=== PATIENT | female | born 1990 | race Caucasian/White ===

== ENCOUNTER 2018-12-03 16:43 | Emergency (ER) | payer OTHER ==
[2018-12-03 17:02] VITALS: BMI 25.8
--- NOTE | 2018-12-03 17:05 | PDOC ---
Rapid Medical Evaluation Chief Complaint: Nausea/Vomiting Time Seen by Provider: 12/03/18 16:57 Medical Evaluation: Vital Signs Temp Pulse Resp BP Pulse Ox 98.5 F 80 18 89/59 L 98 12/03/18 16:56 12/03/18 16:56 12/03/18 16:56 12/03/18 16:56 12/03/18 16:56 12/03/18 17:03 I have performed a brief in-person evaluation of this patient. The patient presents with a chief complaint of:sore throat Pertinent physical exam findings:Hypotensive and mostly somnolent in triage I have ordered the following:Labs and rapid strep The patient will proceed to the ED for further evaluation. 12/03/18 17:05 Discharge Disposition - Diagnosis Throat pain - Referrals - Patient Instructions - Post Discharge Activity
[2018-12-03 17:48] LABS: BASO % 0.3 % (0-2.0); HEMOGLOBIN 13.2 GM/dL (10.7-15.3); MCH 28.7 pg (25.7-33.7); MCHC 32.1 g/dl (32.0-36.0); MEAN CELL VOLUME 89.4 fl (80-96); MEAN PLT VOLUME 9.7 fl (7.5-11.1); MONO % 10.5 % (3.8-10.2); NEUT % 58.2 % (42.8-82.8); PLATELET COUNT 247 K/MM3 (134-434); RBC 4.59 M/mm3 (3.60-5.2); RDW 13.3 % (11.6-15.6); WHITE BLOOD COUNT 9.4 K/mm3 (4.0-10.0)
[2018-12-03 17:59] LABS: EPI CELLS 3.4 /HPF (0-5/HPF); HYALINE CASTS 3 /lpf (0-8); URINE APPEARANCE TURBID; URINE BACTERIA 4862.9 /hpf (NEGATIVE); URINE BILIRUBIN NEGATIVE (NEGATIVE); URINE COLOR YELLOW; URINE GLUCOSE (UA) NEGATIVE (NEGATIVE); URINE KETONE TRACE (NEGATIVE); URINE LEUK ESTERASE NEGATIVE (NEGATIVE); URINE NITRITE POSITIVE (NEGATIVE); URINE PROTEIN NEGATIVE (NEGATIVE); URINE RBC 5 /hpf (0-4); URINE WBC 2 /hpf (0-5)
[2018-12-03 18:08] LABS: COCAINE, UR NEGATIVE ng/ml (CUTOFF=300); METHADONE, UR NEGATIVE ng/ml (CUTOFF=300); OPIATES, URI NEGATIVE ng/ml (CUTOFF=300); PHENCYCLIDINE,URINE NEGATIVE ng/ml (CUTOFF=25); URINE AMPHETAMINES NEGATIVE ng/ml (CUTOFF=500); URINE BARBITURATES NEGATIVE ng/ml (CUTOFF=200)
[2018-12-03 18:23] LABS: BILIRUBIN,TOTAL 0.4 mg/dL (0.2-1); BLOOD UREA NITROGEN 9.4 mg/dL (7-18); CALCIUM 9.4 mg/dL (8.5-10.1); CREATININE 0.8 mg/dL (0.55-1.3); POTASSIUM 3.8 mmol/L (3.5-5.1)
[2018-12-03 18:24] LABS: URINE BENZODIAZEPINES POSITIVE ng/ml (CUTOFF=200)
[2018-12-03] MEDS ORDERED: DEXAMETHASONE SOD PHOSPHATE 10 MG/1 ML VIAL IM ONE (20:06)
[2018-12-03] MEDS ORDERED: KETOROLAC TROMETHAMINE 30 MG/1 ML VIAL IM ONE (20:06)
[2018-12-03] MEDS ORDERED: KETOROLAC TROMETHAMINE 30 MG/1 ML VIAL ONE ×2 (20:19→22:47)
[2018-12-03] MEDS ORDERED: DEXAMETHASONE SOD PHOSPHATE 10 MG/1 ML VIAL ONE (20:19)
[2018-12-03] MEDS ORDERED: CEFTRIAXONE 2 GM-D5W BAG 2 GM/50 ML BAG IVPB ONE (21:06)
[2018-12-03] MEDS ORDERED: CLINDAMYCIN 900 MG PREMIX IVPB 900 MG/50 ML BAG IVPB ONE ×2 (21:06→21:53)
[2018-12-03] MEDS ORDERED: BENZOCAINE 20% 57 GM BOTTLE TP ONE (21:12)
[2018-12-03] MEDS ORDERED: CEFTRIAXONE 2 GM/100 ML BAG IVPB ONE (21:53)
--- NOTE | 2018-12-03 22:07 | PDOC ---
History of Present Illness - General Chief Complaint: Nausea/Vomiting Stated Complaint: FEVER/VOMITING Time Seen by Provider: 12/03/18 16:57 History Source: Patient Exam Limitations: No Limitations Past History - Past Medical History Allergies/Adverse Reactions: Allergies Allergy/AdvReac Type Severity Reaction Status Date / Time acetaminophen [From Vicodin] AdvReac Verified 12/03/18 17:03 hydrocodone [From Vicodin] AdvReac Verified 12/03/18 17:03 Home Medications: Ambulatory Orders Amoxicillin/Potassium Clav [Augmentin 875-125 Tablet] 1 each PO BID #20 tablet 12/03/18 Clonazepam [Klonopin] 1 mg PO QID 12/03/18 Gabapentin 900 mg PO DAILY 12/03/18 Quetiapine Fumarate [Seroquel -] 50 mg PO PRN 12/03/18 Quetiapine Fumarate [Seroquel] 200 mg PO HS 12/03/18 Sertraline HCl [Zoloft -] 150 mg PO DAILY 12/03/18 Topiramate [Topamax] 50 mg PO DAILY 12/03/18 Zolpidem Tartrate [Ambien] 10 mg PO HS 12/03/18 COPD: No HTN: Yes Hypercholesterolemia: Yes Psychiatric Problems: Yes (anxiety, depression) Other medical history: arthritis - Surgical History Cholecystectomy: Yes Gastric Stapling: Yes (gastric sleeve) - Suicide/Smoking/Psychosocial Hx Smoking History: Former smoker Have you smoked in the past 12 months: No Information on smoking cessation initiated: No *Physical Exam - Vital Signs Last Vital Signs Temp Pulse Resp BP Pulse Ox 98.5 F 80 18 89/59 L 98 12/03/18 16:56 12/03/18 16:56 12/03/18 16:56 12/03/18 16:56 12/03/18 16:56 - Physical Exam General Appearance: No: Apparent Distress HEENT: positive: Muffled/Hoarse voice, Tonsillar Exudate, Other (R tonsillar exudate, +uvula deviation; no stridor). negative: Nasal Congestion, Rhinorrhea , Sinus Tenderness Respiratory/Chest: positive: Lungs Clear, Normal Breath Sounds. negative: Respiratory Distress Cardiovascular: positive: Regular Rhythm, Regular Rate, S1, S2. negative: Murmur Integumentary: positive: Normal Color. negative: Rash Neurologic: positive: Alert, Normal Mood/Affect ED Treatment Course - LABORATORY CBC & Chemistry Diagram: 12/03/18 17:28 12/03/18 17:28 - ADDITIONAL ORDERS Additional order review: Laboratory Results 12/03/18 12/03/18 12/03/18 17:36 17:36 17:36 Sodium Potassium Chloride Carbon Dioxide Anion Gap BUN Creatinine Est GFR (CKD-EPI)AfAm Est GFR (CKD-EPI)NonAf Random Glucose Calcium Total Bilirubin AST ALT Alkaline Phosphatase Total Protein Albumin Urine Color Yellow Urine Appearance Turbid Urine pH 7.0 Ur Specific [place] 1.026 Urine Protein Negative Urine Glucose (UA) Negative Urine Ketones Trace H Urine Blood Negative Urine Nitrite Positive H Urine Bilirubin Negative Urine Urobilinogen 2.0 H Ur Leukocyte Esterase Negative Urine WBC (Auto) 2 Urine RBC (Auto) 5 Urine Casts (Auto) 3 U Epithel Cells (Auto) 3.4 Urine Bacteria (Auto) 4862.9 Urine HCG, Qual Negative Opiates Screen Negative Methadone Screen Negative Barbiturate Screen Negative Phencyclidine Screen Negative Ur Amphetamines Screen Negative MDMA (Ecstasy) Screen Negative Benzodiazepines Screen Positive A* Cocaine Screen Negative U Marijuana (THC) Screen Positive A* 12/03/18 17:28 Sodium 140 Potassium 3.8 Chloride 110 H Carbon Dioxide 20 L Anion Gap 10 BUN 9.4 Creatinine 0.8 Est GFR (CKD-EPI)AfAm 117.93 Est GFR (CKD-EPI)NonAf 101.75 Random Glucose 94 Calcium 9.4 Total Bilirubin 0.4 AST 12 L ALT 18 Alkaline Phosphatase 80 Total Protein 8.0 Albumin 4.0 Urine Color Urine Appearance Urine pH Ur Specific [place] Urine Protein Urine Glucose (UA) Urine Ketones Urine Blood Urine Nitrite Urine Bilirubin Urine Urobilinogen Ur Leukocyte Esterase Urine WBC (Auto) Urine RBC (Auto) Urine Casts (Auto) U Epithel Cells (Auto) Urine Bacteria (Auto) Urine HCG, Qual Opiates Screen Methadone Screen Barbiturate Screen Phencyclidine Screen Ur Amphetamines Screen MDMA (Ecstasy) Screen Benzodiazepines Screen Cocaine Screen U Marijuana (THC) Screen 12/03/18 17:28 RBC 4.59 MCV 89.4 MCHC 32.1 RDW 13.3 MPV 9.7 Neutrophils % 58.2 Lymphocytes % 27.0 Monocytes % 10.5 H Eosinophils % 4.0 Basophils % 0.3 - Medications Given in the ED: ED Medications Discontinued Medications Generic Name Dose Route Start Last Admin Trade Name Maryuri PRN Reason Stop Dose Admin Dexamethasone Sodium Phosphate 10 mg 12/03/18 20:06 12/03/18 20:30 Decadron Injection - IM 12/03/18 20:07 10 mg ONCE ONE Administration Ketorolac Tromethamine 30 mg 12/03/18 20:06 12/03/18 20:31 Toradol Injection - IM 12/03/18 20:07 30 mg ONCE ONE Administration Medical Decision Making - Medical Decision Making 28 y/o F hx of mitral valve prolapse, arthritis, prior strep throat, anxiety presents with concern for possible strep throat. Has been having throat pain x 4 days; also with fever and chills (Tmax 100.2), slight productive cough, slight congestion and slight rhinorrhea. Took Tylenol at 5 Am today. Denies SOB , CP, abd pain, vomiting. Concern for [employer] Rapid strep + Given Decadron and Toradol Attempted aspiration but unable to draw out any pus Ultrasound showed very small pocket of fluid (<1 cm), difficult to drain D/W ENT, Dr. Brown - recommends dose of IV Clindamycin 900 and 2 grams Ceftriaxone - states he can see patient tomorrow 12/03/18 22:01 *DC/Admit/Observation/Transfer Diagnosis at time of Disposition: Peritonsillar abscess - Discharge Dispostion Disposition: HOME Condition at time of disposition: Stable Decision to Admit order: No - Prescriptions Prescriptions: Amoxicillin/Potassium Clav [Augmentin 875-125 Tablet] 1 each PO BID #20 tablet - Referrals Referrals: Bernice Rios MD [Primary Care Provider] - Marcello Brown MD [Staff Physician] - Call tomorrow - Patient Instructions Printed Discharge Instructions: DI for Peritonsillar Abscess -- Adult Additional Instructions: Thank you for choosing [facility]. It was a pleasure taking care of you. You may take Motrin 600 mg every 6 hours by mouth as needed for mild to moderate pain. Take Motrin with food. Take antibiotics as prescribed Recommend following a liquid diet for now (such as jello, juice, ice pop) Please call ENTDr. Brown at [phone], tomorrow to make appointment Return to the Emergency Department if your symptoms worsen or persist, you have fever, difficulty breathing, neck stiffness, worsening throat pain, bleeding or other concerning symptoms. - Post Discharge Activity
[2018-12-03] MEDS ORDERED: KETOROLAC TROMETHAMINE 30 MG/1 ML VIAL IVPUSH ONE (22:28)
[2018-12-04 01:27] VITALS: BP 113/60; PULSE 69; TEMP 98.2
== END 2018-12-03 23:39 | disposition home or self-care (01) ==
LOC: JER 16:43
PROC: 3E03329 Introduction of Other Anti-infective into Peripheral Vein, Percutaneous Approach (ICD-10-PCS; principal; 2018-12-03)
PROC: 3E023GC Introduction of Other Therapeutic Substance into Muscle, Percutaneous Approach (ICD-10-PCS; 2018-12-03)
PROC: 3E0333Z Introduction of Anti-inflammatory into Peripheral Vein, Percutaneous Approach (ICD-10-PCS; 2018-12-03)
DX: E78.00 Pure hypercholesterolemia, unspecified (principal); Z87.891 Personal history of nicotine dependence; J36 Peritonsillar abscess; I34.1 Nonrheumatic mitral (valve) prolapse
CPT/HCPCS: 36415; 80053; 80307; 81003; 84703; 85025; 87086; 87880; 99284-25; J1100